=== PATIENT | male | born 2000 | race Hispanic/Latino ===

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

== ENCOUNTER 2023-12-16 12:18 | Emergency (ER) | payer SELFPAY | END 2023-12-16 14:19 | disposition home or self-care (01) | LOC: NAV ERS 12:18 | DX: J06.9 Acute upper respiratory infection, unspecified (principal); J02.9 Acute pharyngitis, unspecified; F17.290 Nicotine dependence, other tobacco product, uncomplicated | CPT/HCPCS: 87081; 87430; 87635; 87804; 99283 ==